=== PATIENT | male | born 2000 | race Caucasian/White ===

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

== ENCOUNTER 2020-03-23 19:43 | Emergency (ER) | payer OTHER, MEDICAID ==
[~2020-03-23] VITALS: Ht 175.3 cm; Wt 77.6 kg
[2020-03-23 19:57] VITALS: Ht 175.3 cm; Wt 77.6 kg
[2020-03-23 22:16] VITALS: BP 128/74
== END 2020-03-23 22:12 | disposition home or self-care (01) ==
LOC: ED 19:43
DX: S13.4XXA Sprain of ligaments of cervical spine, initial encounter (principal); S00.83XA Contusion of other part of head, initial encounter; S60.512A Abrasion of left hand, initial encounter; V49.49XA Driver injured in collision with other motor vehicles in traffic accident, initial encounter; Y93.I9 Activity, other involving external motion; Y92.488 Other paved roadways as the place of occurrence of the external cause; Y99.8 Other external cause status
CPT/HCPCS: 90715